=== PATIENT | female | born 1990 | race Caucasian/White ===

== ENCOUNTER 2016-10-31 01:49 | Emergency (ER) | payer BC, OTHER ==
[~2016-10-31] VITALS: Ht 167.6 cm; Wt 58.8 kg
[2016-10-31] MEDS ORDERED: ALBU1.25 NEB (02:14)
[2016-10-31 02:52] LABS: HEMOGLOBIN 13.8 g/dL (11.7-16.4)
[2016-10-31 03:06] LABS: BLOOD UREA NITROGEN 20 mg/dL (7-18)
[2016-10-31 03:11] LABS: IS PT STATUS REG ER OR PRE ER? YES
[2016-10-31 04:02] VITALS: BP 96/57
== END 2016-10-31 04:17 | disposition home or self-care (01) ==
LOC: ED 04:01
DX: M94.0 Chondrocostal junction syndrome [Tietze] (principal); R07.9 Chest pain, unspecified; J45.909 Unspecified asthma, uncomplicated
CPT/HCPCS: 36415; 71010; 80048; 82040; 84484; 85025; 85379; 93005

== ENCOUNTER 2017-07-30 12:45 | Inpatient (IN) | payer BC ==
[~2017-07-30] VITALS: Ht 167.6 cm; Wt 69.5 kg
[~2017-07-30 12:45] MED LIST: ALBU1.25 NEB
[2017-07-30 13:29] VITALS: BP 120/83
[2017-07-30 14:59] LABS: AMNISURE POSITIVE (NEGATIVE)
[2017-07-30] MEDS: D5%-LACTATED RINGERS 1,000 ML IV SCH ×2 (15:07→20:35)
[2017-07-30] MEDS ORDERED: OXYTOCIN 30U/ 0.9% NaCL 500ML 500 ML IV ONE (15:07)
[2017-07-30] MEDS ORDERED: OXYTOCIN 30U/ 0.9% NaCL 500ML 500 ML IV PRN (15:07)
[2017-07-30] MEDS ORDERED: ONDANSETRON 2MG/ML, 2ML IVPush PRN (15:30)
[2017-07-30] MEDS ORDERED: FENTANYL PF 100 MCG/2ML IVPush PRN (15:30)
[2017-07-30] MEDS ORDERED: TERBUTALINE 1 MG/ML, 1ML SQ PRN (15:30)
[2017-07-30] MEDS ORDERED: FENTANYL PF 100 MCG/2ML IV PRN (15:30)
[2017-07-30] MEDS ORDERED: NEWBORN KIT ONE (15:48)
[2017-07-30] MEDS ORDERED: OXYTOCIN 30U/ 0.9% NaCL 500ML 500 ML ONE (15:49)
[2017-07-30] MEDS ORDERED: MISOPROSTOL 200 MCG TABLET ONE (15:49)
[2017-07-30] MEDS ORDERED: LIDOCAINE 1%, 10ML ONE (15:50)
[2017-07-30 15:56] LABS: BASOPHILS # (AUTO) 0.03 x10^3/uL (0-0.1); BASOPHILS % (AUTO) 0 % (0-1); EOSINOPHILS # (AUTO) 0.01 x10^3/uL (0-0.4); EOSINOPHILS % (AUTO) 0 % (1-7); LYMPHOCYTES # (AUTO) 3.42 x10^3/uL (1-3.4); LYMPHOCYTES % (AUTO) 46 % (22-44); MD NO; MEAN CORPUSCULAR HEMOGLOBIN 32.2 pg (27.0-34.8); MEAN CORPUSCULAR HGB CONC 34.1 g/dL (32.4-35.8); MEAN CORPUSCULAR VOLUME 94.5 fL (80-100); MEAN PLATELET VOLUME 9.4 fL (7.4-10.4); MONOCYTES # (AUTO) 0.45 x10^3/uL (0.2-0.8); MONOCYTES % (AUTO) 6 % (2-9); NEUTROPHILS # (AUTO) 3.56 x10^3/uL (1.8-6.8); NEUTROPHILS % (AUTO) 48 % (42-75); PLATELET COUNT 185 x10^3/uL (130-400); RED BLOOD COUNT 4.26 x10^6/uL (3.82-5.3); RED CELL DISTRIBUTION WIDTH 13.3 % (9.6-15.2)
[2017-07-30] MEDS: LACTATED RINGERS 1,000 ML IV SCH (16:13)
[2017-07-30 16:20] VITALS: BP 121/81
[2017-07-30] MEDS ORDERED: FENTANYL PF 100 MCG/2ML ONE (21:12)
[2017-07-30] MEDS ORDERED: CALCIUM CARBONATE 500 MG TAB.CHEW ONE (21:12)
[2017-07-30] MEDS ORDERED: CALCIUM CARBONATE 500 MG TAB.CHEW PO PRN (21:30)
[2017-07-31] MEDS ORDERED: OXYTOCIN 30U/ 0.9% NaCL 500ML 500 ML IV SCH (00:38)
[2017-07-31] MEDS ORDERED: OXYTOCIN 30U/ 0.9% NaCL 500ML 500 ML ONE (00:58)
[2017-07-31] MEDS ORDERED: MISOPROSTOL 200 MCG TABLET PR PRN (01:00)
[2017-07-31] MEDS ORDERED: ACETAMINOPHEN 325 MG TABLET PO PRN (01:00)
[2017-07-31] MEDS ORDERED: GLYCERIN ADULT SUPP PR PRN (01:00)
[2017-07-31] MEDS ORDERED: ONDANSETRON 2MG/ML, 2ML IV PRN (01:00)
[2017-07-31] MEDS ORDERED: IBUPROFEN 800 MG TABLET PO PRN (01:00)
[2017-07-31] MEDS ORDERED: OXYcodone/APAP 5/325MG TABLET PO PRN (01:00)
[2017-07-31] MEDS ORDERED: CARBOPROST TROMETHAMINE 250 MCG/ML, 1ML IM PRN (01:00)
[2017-07-31] MEDS ORDERED: METOCLOPRAMIDE 5 MG/ML, 2ML IV PRN (01:00)
[2017-07-31] MEDS ORDERED: BISACODYL 10 MG SUPP PR PRN (01:00)
[2017-07-31] MEDS ORDERED: METHYLERGONOVINE 0.2 MG/ML IM PRN (01:00)
[2017-07-31] MEDS: LACTATED RINGERS 1,000 ML IV SCH (01:09)
[2017-07-31] MEDS ORDERED: OXYcodone/APAP 5/325MG TABLET ONE (01:50)
[2017-07-31] MEDS ORDERED: IBUPROFEN 600 MG TABLET ONE (01:50)
[2017-07-31] MEDS: OXYcodone/APAP 5/325MG TABLET PO PRN ×3 (01:52→14:24)
[2017-07-31] MEDS: IBUPROFEN 600 MG TABLET PO PRN ×3 (01:52→22:28)
[2017-07-31] MEDS ORDERED: ONDANSETRON 2MG/ML, 2ML ONE (02:05)
[2017-07-31 02:40] VITALS: BP 105/72
[2017-07-31] MEDS ORDERED: DIPH,PERTUSS(ACELL),TET VAC/PF NC IM-VACC ONE (03:00)
[2017-07-31 07:41] LABS: BASOPHILS % (AUTO) 0 % (0-1); EOSINOPHILS % (AUTO) 0 % (1-7); LYMPHOCYTES # (AUTO) 3.01 x10^3/uL (1-3.4); LYMPHOCYTES % (AUTO) 23 % (22-44); MD NO; MEAN CORPUSCULAR HEMOGLOBIN 32.4 pg (27.0-34.8); MEAN CORPUSCULAR HGB CONC 34.4 g/dL (32.4-35.8); MEAN CORPUSCULAR VOLUME 94.1 fL (80-100); MEAN PLATELET VOLUME 8.3 fL (7.4-10.4); MONOCYTES # (AUTO) 0.93 x10^3/uL (0.2-0.8); MONOCYTES % (AUTO) 7 % (2-9); NEUTROPHILS # (AUTO) 9.34 x10^3/uL (1.8-6.8); NEUTROPHILS % (AUTO) 70 % (42-75); PLATELET COUNT 169 x10^3/uL (130-400); RED BLOOD COUNT 3.03 x10^6/uL (3.82-5.3); RED CELL DISTRIBUTION WIDTH 13.3 % (9.6-15.2)
[2017-07-31 08:00] VITALS: BP 105/70
[2017-07-31] MEDS: DOCUSATE 100 MG CAPSULE PO PRN ×2 (12:24→22:28)
[2017-07-31 12:25] VITALS: BP 121/79
[2017-07-31] MEDS: PRENATAL VIT/IRON/FA 1 EACH TABLET PO SCH (12:25)
[2017-07-31 19:40] VITALS: BP 99/59
[2017-08-01 07:11] VITALS: BP 118/81
[2017-08-01] MEDS: IBUPROFEN 600 MG TABLET PO PRN (07:22)
[2017-08-01] MEDS: DOCUSATE 100 MG CAPSULE PO PRN (07:22)
[2017-08-01] MEDS: PRENATAL VIT/IRON/FA 1 EACH TABLET PO SCH (07:22)
[2017-08-01] MEDS ORDERED: IBUP-1222 PO (10:31)
== END 2017-08-01 13:10 | disposition home or self-care (01) | DRG 775 ==
LOC: LDOP 12:45 → LDIP 15:12 → 2NW 07-31 02:15
PROVIDERS: ADMIT Obstetrics & Gynecology; ATTEND Obstetrics & Gynecology
PROC: 10E0XZZ Delivery of Products of Conception, External Approach (ICD-10-PCS; principal; 2017-07-31)
PROC: 0KQM0ZZ Repair Perineum Muscle, Open Approach (ICD-10-PCS; 2017-07-31)
PROC: 3E033VJ Introduction of Other Hormone into Peripheral Vein, Percutaneous Approach (ICD-10-PCS; 2017-07-31)
DX: O42.92 Full-term premature rupture of membranes, unspecified as to length of time between rupture and onset of labor (principal); O70.1 Second degree perineal laceration during delivery; Z37.0 Single live birth; Z3A.37 37 weeks gestation of pregnancy
CPT/HCPCS: 36415; 84112; 85025; 86850; 86900; 89060; 90715; J2405; J3010; J2590; J7120; J7121; Q0114

== ENCOUNTER 2019-06-20 10:47 | Outpatient (CLI) | payer OTHER ==
[~2019-06-20 10:47] MED LIST changes: +IBUP-1222 PO
[2019-06-20 11:25] LABS: BASOPHILS # (AUTO) 0.02 x10^3/uL (0-0.1); BASOPHILS % (AUTO) 0 % (0-1); EOSINOPHILS # (AUTO) 0.12 x10^3/uL (0-0.4); EOSINOPHILS % (AUTO) 2 % (1-7); LYMPHOCYTES # (AUTO) 2.67 x10^3/uL (1-3.4); LYMPHOCYTES % (AUTO) 51 % (22-44); MD NO; MEAN CORPUSCULAR HEMOGLOBIN 30.9 pg (27.0-34.8); MEAN CORPUSCULAR HGB CONC 33.4 g/dL (32.4-35.8); MEAN CORPUSCULAR VOLUME 92.6 fL (80-100); MONOCYTES # (AUTO) 0.38 x10^3/uL (0.2-0.8); MONOCYTES % (AUTO) 7 % (2-9); NEUTROPHILS # (AUTO) 2.06 x10^3/uL (1.8-6.8); NEUTROPHILS % (AUTO) 39 % (42-75); PLATELET COUNT 272 x10^3/uL (130-400); RED BLOOD COUNT 4.85 x10^6/uL (3.82-5.3); RED CELL DISTRIBUTION WIDTH 13.5 % (9.6-15.2)
[2019-06-20 11:37] LABS: ANION GAP 4 mmol/L (5-15); CALCIUM 8.6 mg/dL (8.5-10.1); CHLORIDE 108 mmol/L (98-107)
[2019-06-20 12:05] LABS: % IRON SATURATION 29 % (20-55); ALANINE AMINOTRANSFERASE 22 U/L (12-78); ALKALINE PHOSPHATASE 77 U/L (45-117); BILIRUBIN,TOTAL 0.8 mg/dL (0.2-1.0); CREATININE 0.83 mg/dL (0.55-1.02); FOLATE LEVEL 7.8 ng/mL (3.1-17.5); IRON LEVEL 120 mcg/dL (50-170); TOTAL IRON BINDING CAPACITY 419 mcg/dL (250-450); TOTAL PROTEIN 7.9 g/dL (6.4-8.2)
== END 2019-06-20 23:59 | disposition home or self-care (01) ==
LOC: LAB 10:47
PROVIDERS: ATTEND Nurse Practitioner Family
DX: I95.9 Hypotension, unspecified (principal); R42 Dizziness and giddiness; R53.83 Other fatigue
CPT/HCPCS: 36415; 80053; 82607; 82746; 83540; 83550; 84443; 85025

== ENCOUNTER 2019-07-20 18:49 | Emergency (ER) | payer OTHER ==
[~2019-07-20] VITALS: Ht 167.6 cm; Wt 57.1 kg
[2019-07-20 19:50] LABS: MICROSCOPIC AUTO
[2019-07-20 19:51] LABS: CULTURE INDICATED? NO
[2019-07-20 20:00] LABS: BASOPHILS # (AUTO) 0.02 x10^3/uL (0-0.1); BASOPHILS % (AUTO) 0 % (0-1); EOSINOPHILS # (AUTO) 0.13 x10^3/uL (0-0.4); EOSINOPHILS % (AUTO) 2 % (1-7); LYMPHOCYTES # (AUTO) 2.62 x10^3/uL (1-3.4); LYMPHOCYTES % (AUTO) 41 % (22-44); MD NO; MEAN CORPUSCULAR HEMOGLOBIN 30.8 pg (27.0-34.8); MEAN CORPUSCULAR HGB CONC 32.9 g/dL (32.4-35.8); MEAN CORPUSCULAR VOLUME 93.5 fL (80-100); MEAN PLATELET VOLUME 8.4 fL (7.4-10.4); MONOCYTES % (AUTO) 6 % (2-9); NEUTROPHILS # (AUTO) 3.31 x10^3/uL (1.8-6.8); NEUTROPHILS % (AUTO) 51 % (42-75); PLATELET COUNT 270 x10^3/uL (130-400); RED BLOOD COUNT 4.62 x10^6/uL (3.82-5.3); RED CELL DISTRIBUTION WIDTH 13.1 % (9.6-15.2)
[2019-07-20 20:06] LABS: ALANINE AMINOTRANSFERASE 26 U/L (12-78); ALBUMIN 3.9 g/dL (3.4-5.0); ANION GAP 3 mmol/L (5-15); CALCIUM 8.9 mg/dL (8.5-10.1); CHLORIDE 109 mmol/L (98-107); CREATININE 0.93 mg/dL (0.55-1.02)
[2019-07-20 20:10] LABS: ALKALINE PHOSPHATASE 84 U/L (45-117); BILIRUBIN,TOTAL 0.7 mg/dL (0.2-1.0); TOTAL PROTEIN 7.8 g/dL (6.4-8.2)
--- NOTE | 2019-07-20 22:35 | NUR ---
FIRST CONTACT WITH PT. PT C/O LOWER LEFT ABD PAIN THAT RADIATES TO BACK X A FEW WEEKS. HAS BEEN GOING TO URGENT CARE FOR THE PAST FEW WEEKS, WAS SENT HERE FOR CT SCAN. DENIES ANY N/V/D. PT'S AOX4. RESPS EVEN AND UNLABORED. BP/SPO2 MONITORS IN PLACE. CALL LIGHT WITHIN REACH.
[2019-07-20] MEDS ORDERED: SODIUM CHLORIDE FLUSH 10ML SYR IVF ONE (23:00)
--- NOTE | 2019-07-20 23:05 | NUR ---
PIV EST ON LAC BY THIS RN. PT TOLERATED WELL.
[2019-07-20 23:44] VITALS: BP 105/69
--- NOTE | 2019-07-20 23:44 | NUR ---
PT AMB TO BR WITH STEADY GAIT.
[2019-07-21] MEDS ORDERED: OMNIPAQUE 350 MG/ML, 100ML BOTTLE ONE (00:05)
--- NOTE | 2019-07-21 00:27 | NUR ---
[facility] RESTING [facility]. PT'S AOX4. RESPS EVEN AND UNLABORED. BP/SPO2 MONITORS IN PLACE. CALL LIGHT WITHIN REACH. AWAITING DISPO
--- NOTE | 2019-07-21 01:04 | NUR ---
Patient given discharge instructions and they have confirmed that they understand the instructions. Patient ambulatory with steady gait.
== END 2019-07-21 01:05 | disposition home or self-care (01) ==
LOC: ED 23:50
DX: R10.12 Left upper quadrant pain (principal); J45.909 Unspecified asthma, uncomplicated
CPT/HCPCS: 36415; 74177; 80053; 81001; 83690; 84702; 85025; 99284; Q9967

== ENCOUNTER 2020-07-26 22:03 | Emergency (ER) | payer OTHER ==
[~2020-07-26] VITALS: Ht 167.6 cm; Wt 57.6 kg
[2020-07-27 00:20] LABS: BASOPHILS % (AUTO) 0 % (0-1); EOSINOPHILS % (AUTO) 2 % (1-7); LYMPHOCYTES % (AUTO) 32 % (22-44); MEAN CORPUSCULAR HEMOGLOBIN 31.3 pg (27.0-34.8); MEAN CORPUSCULAR HGB CONC 34.4 g/dL (32.4-35.8); MEAN PLATELET VOLUME 8.4 fL (7.4-10.4); MONOCYTES % (AUTO) 7 % (2-9); NEUTROPHILS % (AUTO) 59 % (42-75); PLATELET COUNT 277 x10^3/uL (130-400); RED BLOOD COUNT 4.47 x10^6/uL (3.82-5.3); RED CELL DISTRIBUTION WIDTH 12.7 % (9.6-15.2)
[2020-07-27 00:21] LABS: MD NO
[2020-07-27 00:25] LABS: ALBUMIN 3.3 g/dL (3.4-5.0); ANION GAP 5 mmol/L (5-15); CALCIUM 9.4 mg/dL (8.5-10.1); CHLORIDE 109 mmol/L (98-107)
[2020-07-27 00:40] LABS: CREATININE 1.09 mg/dL (0.55-1.02)
[2020-07-27 05:12] LABS: MICROSCOPIC AUTO
[2020-07-27 06:00] VITALS: BP 108/39
[2020-07-27] MEDS ORDERED: ONDANSETRON ODT 4 MG PO ONE (07:30)
[2020-07-27] MEDS ORDERED: ACETAMINOPHEN 500 MG TABLET PO ONE (07:30)
[2020-07-27] MEDS ORDERED: ONDANSETRON ODT 4 MG ONE (07:35)
[2020-07-27] MEDS ORDERED: ACETAMINOPHEN 500 MG TABLET ONE (07:36)
--- NOTE | 2020-07-27 08:17 | NUR ---
THIS TECH ASSISTED PROVIDER JESSA LITTLE WITH PELVIC EXAM ON THIS PATIENT. PATIENT TOLERTAED PROCEDURE WELL. PATIENT DENIES ANY NEEDS AT THIS TIME.
[2020-07-27 08:40] LABS: CLUE CELLS NONE SEEN (NONE SEEN); WET PREP WBCS FEW (FEW)
[2020-07-27] MEDS ORDERED: metroNIDAZOLE 500 MG TABLET PO ONE (09:00)
[2020-07-27] MEDS ORDERED: metroNIDAZOLE 500 MG TABLET ONE (09:37)
== END 2020-07-27 10:41 | disposition home or self-care (01) ==
LOC: ED 07-27 08:49
DX: O23.41 Unspecified infection of urinary tract in pregnancy, first trimester (principal); O23.511 Infections of cervix in pregnancy, first trimester; O99.511 Diseases of the respiratory system complicating pregnancy, first trimester; Z3A.11 11 weeks gestation of pregnancy
CPT/HCPCS: 36415; 76801; 80048; 81001; 82040; 84702; 85025; 86901; 87086; 87210; 87491; 87591; 87808; 99284; Q0162

== ENCOUNTER 2021-02-03 10:28 | Inpatient (IN) | payer OTHER ==
[~2021-02-03] VITALS: Ht 167.6 cm; Wt 72.7 kg
[2021-02-03 10:32] VITALS: BP 106/62
[2021-02-03] MEDS ORDERED: SODIUM CITRATE/CITRIC ACID 30 ML UDC PO PRN (11:00)
[2021-02-03] MEDS ORDERED: TERBUTALINE 1 MG/ML, 1ML SQ PRN (11:00)
[2021-02-03] MEDS ORDERED: ONDANSETRON 2MG/ML, 2ML IVPush PRN (11:00)
[2021-02-03] MEDS ORDERED: OXYTOCIN 30U/ 0.9% NaCL 500ML 500 ML IV ONE (11:00)
[2021-02-03] MEDS ORDERED: LACTATED RINGERS 1,000 ML IV SCH (11:00)
[2021-02-03] MEDS ORDERED: METOCLOPRAMIDE 5 MG/ML, 2ML IVPush PRN (11:00)
[2021-02-03] MEDS ORDERED: FENTANYL PF 100 MCG/2ML IVPush PRN (11:00)
[2021-02-03] MEDS ORDERED: D5%-LACTATED RINGERS 1,000 ML IV SCH (11:00)
[2021-02-03] MEDS ORDERED: FENTANYL PF 100 MCG/2ML IV PRN (11:00)
[2021-02-03] MEDS ORDERED: TERBUTALINE 1 MG/ML, 1ML IVPush PRN (11:00)
[2021-02-03] MEDS ORDERED: NEWBORN KIT ONE (11:02)
[2021-02-03] MEDS ORDERED: OXYTOCIN 30U/ 0.9% NaCL 500ML 500 ML ONE ×2 (11:02→14:39)
[2021-02-03 11:24] LABS: BASOPHILS % (AUTO) 0 % (0-1); EOSINOPHILS % (AUTO) 1 % (1-7); LYMPHOCYTES % (AUTO) 30 % (22-44); MEAN CORPUSCULAR HGB CONC 34.6 g/dL (32.4-35.8); MEAN PLATELET VOLUME 8.2 fL (7.4-10.4); MONOCYTES % (AUTO) 8 % (2-9); NEUTROPHILS % (AUTO) 61 % (42-75); PLATELET COUNT 200 x10^3/uL (130-400); RED BLOOD COUNT 3.89 x10^6/uL (3.82-5.3); RED CELL DISTRIBUTION WIDTH 15.9 % (9.6-15.2)
[2021-02-03] MEDS ORDERED: LIDOCAINE 1%, 20ML ONE (13:32)
[2021-02-03] MEDS ORDERED: IBUPROFEN 600 MG TABLET ONE (13:57)
[2021-02-03] MEDS ORDERED: OXYcodone/APAP 5/325MG TABLET ONE (13:57)
[2021-02-03] MEDS ORDERED: OXYcodone/APAP 5/325MG TABLET PO PRN (14:00)
[2021-02-03] MEDS ORDERED: MISOPROSTOL 200 MCG TABLET PR PRN (14:00)
[2021-02-03] MEDS ORDERED: SIMETHICONE 80 MG CHEW TAB PO PRN (14:00)
[2021-02-03] MEDS ORDERED: ONDANSETRON 2MG/ML, 2ML IV PRN (14:00)
[2021-02-03] MEDS: OXYcodone/APAP 5/325MG TABLET PO PRN ×2 (14:01→19:51)
[2021-02-03] MEDS: IBUPROFEN 600 MG TABLET PO PRN ×2 (14:02→19:50)
[2021-02-03] MEDS: OXYTOCIN 30U/ 0.9% NaCL 500ML 500 ML IV SCH (14:41)
[2021-02-03 16:00] VITALS: BP 103/70
[2021-02-03 19:40] VITALS: BP 94/62
[2021-02-03] MEDS: DOCUSATE 100 MG CAPSULE PO PRN (19:50)
[2021-02-03 21:13] LABS: BASOPHILS % (AUTO) 1 % (0-1); EOSINOPHILS % (AUTO) 0 % (1-7); LYMPHOCYTES % (AUTO) 25 % (22-44); MEAN CORPUSCULAR HEMOGLOBIN 33.3 pg (27.0-34.8); MEAN CORPUSCULAR HGB CONC 34.6 g/dL (32.4-35.8); MONOCYTES % (AUTO) 8 % (2-9); NEUTROPHILS % (AUTO) 67 % (42-75); PLATELET COUNT 177 x10^3/uL (130-400); RED BLOOD COUNT 3.64 x10^6/uL (3.82-5.3); RED CELL DISTRIBUTION WIDTH 15.2 % (9.6-15.2)
[2021-02-04] VITALS: BP 95/59
[2021-02-04] MEDS: IBUPROFEN 600 MG TABLET PO PRN ×2 (04:18→12:06)
[2021-02-04 04:30] VITALS: BP 99/65
[2021-02-04 07:30] VITALS: BP_SYST 103; BP_SYST 109; BP_DIAS 70
[2021-02-04] MEDS: DOCUSATE 100 MG CAPSULE PO PRN (07:36)
[2021-02-04] MEDS ORDERED: PRENATAL VIT/IRON/FA 1 EACH TABLET PO SCH (09:00)
[2021-02-04] MEDS: OXYTOCIN 30U/ 0.9% NaCL 500ML 500 ML IV SCH ×2 (10:00)
[2021-02-04] MEDS ORDERED: IBUP-1222 PO (11:27)
[2021-02-04 12:11] VITALS: BP 104/69
== END 2021-02-04 14:37 | disposition home or self-care (01) | DRG 807 ==
LOC: LDOP 10:28 → LDIP 11:06 → 2NW 15:40
PROVIDERS: ADMIT Obstetrics & Gynecology; ATTEND Obstetrics & Gynecology
PROC: 10E0XZZ Delivery of Products of Conception, External Approach (ICD-10-PCS; principal; 2021-02-03)
PROC: 0KQM0ZZ Repair Perineum Muscle, Open Approach (ICD-10-PCS; 2021-02-03)
PROC: 10907ZC Drainage of Amniotic Fluid, Therapeutic from Products of Conception, Via Natural or Artificial Opening (ICD-10-PCS; 2021-02-03)
DX: O70.1 Second degree perineal laceration during delivery (principal); Z37.0 Single live birth; Z3A.39 39 weeks gestation of pregnancy; Z20.822 Contact with and (suspected) exposure to COVID-19
CPT/HCPCS: 36415; 85025; 86592; 86850; 86900; 87635; G0378; J3010; J2590; J7120